=== PATIENT | male | born 1985 | race American Indian/Alaskan Native ===

== ENCOUNTER 2020-09-29 11:53 | Emergency (ER) | payer SELFPAY ==
[2020-09-29 12:45] VITALS: BP 109/62
--- NOTE | 2020-09-29 12:45 | Emergency Department Report ---
ED ENT HPI - General Stated complaint: TOOTH INFECTION Time Seen by Provider: 09/29/20 12:42 Source: patient Mode of arrival: Ambulatory Limitations: No Limitations - History of Present Illness MD complaint: tooth pain -: Gradual, days(s) Severity: moderate Consistency: constant Improves with: none Worsens with: none Context- Dental: history of dental caries, poor dental care Associated Symptoms: toothache. denies: fever, cough, gum swelling, pain with swallowing, sore throat, tinnitus, hearing loss, discharge from ear, rhinorrhea - Related Data Previous Rx's Medication Instructions Recorded Last Taken Type Amoxicillin [Trimox CAP] 500 mg PO TID #30 capsule 09/29/20 Unknown Rx Ibuprofen [Motrin] 800 mg PO Q8HR PRN #30 tablet 09/29/20 Unknown Rx Allergies Allergy/AdvReac Type Severity Reaction Status Date / Time No Known Allergies Allergy Verified 09/29/20 12:45 ED Dental HPI - General Stated complaint: TOOTH INFECTION Time Seen by Provider: 09/29/20 12:42 - Related Data Previous Rx's Medication Instructions Recorded Last Taken Type Amoxicillin [Trimox CAP] 500 mg PO TID #30 capsule 09/29/20 Unknown Rx Ibuprofen [Motrin] 800 mg PO Q8HR PRN #30 tablet 09/29/20 Unknown Rx Allergies Allergy/AdvReac Type Severity Reaction Status Date / Time No Known Allergies Allergy Verified 09/29/20 12:45 ED Review of Systems ROS: Stated complaint: TOOTH INFECTION Other details as noted in HPI Comment: All other systems reviewed and negative ED Past Medical Hx - Past Medical History Previous Medical History?: No - Surgical History Past Surgical History?: Yes - Family History Family history: no significant - Medications Home Medications: Home Medications Medication Instructions Recorded Confirmed Last Taken Type Amoxicillin [Trimox CAP] 500 mg PO TID #30 capsule 09/29/20 Unknown Rx Ibuprofen [Motrin] 800 mg PO Q8HR PRN #30 tablet 09/29/20 Unknown Rx ED Physical Exam - General General appearance: alert, in no apparent distress - Head Head exam: Present: atraumatic, normocephalic - Eye Eye exam: Present: normal appearance - ENT ENT exam: Present: mucous membranes moist - Expanded ENT Exam Expanded Mouth exam: Present: normal external inspection Teeth exam: Present: dental caries 1 - Other (CARIES) - Neck Neck exam: Present: normal inspection - Respiratory Respiratory exam: Present: normal lung sounds bilaterally. Absent: respiratory distress - Cardiovascular Cardiovascular Exam: Present: regular rate, normal rhythm. Absent: systolic murmur, diastolic murmur, rubs, gallop - GI/Abdominal GI/Abdominal exam: Present: soft, normal bowel sounds - Rectal Rectal exam: Present: deferred - Extremities Exam Extremities exam: Present: normal inspection - Back Exam Back exam: Present: normal inspection - Neurological Exam Neurological exam: Present: alert, oriented X3 - Psychiatric Psychiatric exam: Present: normal affect, normal mood - Skin Skin exam: Present: warm, dry, intact, normal color. Absent: rash ED Course Vital Signs 09/29/20 12:43 Temperature 99.2 F Pulse Rate 65 Respiratory 18 Rate Blood Pressure 109/62 O2 Sat by Pulse 100 Oximetry ED Medical Decision Making - Medical Decision Making LEFT UPPER DENTAL PAIN HAS APPOINTMENT W DMD BUT IT IS WEEKS FROM NOW AND HE IS IN PAIN DELAY IN APPNT DUE TO COVID ABC INTACT VSS NO DROOLING NO TRISMUS NO ABSCESS VSS NO FEVER OR CHILLS EDUCATED ON DMD CARE. PT UNDERSTANDS TODAY WILL ONLY TEMPORIZE THE SITUATION- HE WILL SEE DMD DC HOME WITH DC PLAN OF CARE. HE VERBALIZES UNDERSTANDING OF PLAN OF CARE. Vital Signs 09/29/20 12:43 Temperature 99.2 F Pulse Rate 65 Respiratory 18 Rate Blood Pressure 109/62 O2 Sat by Pulse 100 Oximetry - Differential Diagnosis CARIES Critical care attestation.: If time is entered above; I have spent that time in minutes in the direct care of this critically ill patient, excluding procedure time. ED Disposition Clinical Impression: Dental caries Disposition: DC-01 TO HOME OR SELFCARE Is pt being admited?: No Does the pt Need Aspirin: No Condition: Stable Instructions: Diet and Dental Disease Additional Instructions: meds as ordered today FOLLOW UP WITH DMD [facility] REFERRALS BELOW Prescriptions: Ibuprofen [Motrin] 800 mg PO Q8HR PRN #30 tablet PRN Reason: Pain, Moderate (4-6) Amoxicillin [Trimox CAP] 500 mg PO TID #30 capsule Referrals: [facility] [Outside] - 3-5 Days [facility] [Outside] - 3-5 Days Forms: Work/School Release Form(ED) Time of Disposition: 12:43
== END 2020-09-29 19:00 | disposition home or self-care (01) ==
LOC: ED 11:53
DX: K02.9 Dental caries, unspecified (principal); Z79.899 Other long term (current) drug therapy
CPT/HCPCS: 99281